=== PATIENT | male | born 1990 | race Caucasian/White ===

== ENCOUNTER 2018-05-11 10:13 | Emergency (ER) | payer SELFPAY ==
--- NOTE | 2018-05-11 11:51 | UC ---
UC General HPI - HPI Summary HPI Summary: pain in chest with deep breating and cough x 2 weeks. + head congestion and sweaty plus occasional wheezing. seen [facility] ER last and dx bronchitis and pleurisy. tx prednisone and albuterol mdi. feeling worse. - History of Current Complaint Stated Complaint: CONGESTION COUGH Time Seen by Provider: 05/11/18 11:44 Hx Obtained From: Patient Onset/Duration: Gradual Onset Timing: Constant Aggravating: deep breath, cough, movement and lying back Alleviating: MDI sometimes helps breathing. Associated Signs & Symptoms: Positive: Cough, Chest Pain, Fever - ?, SOB, Wheezing - Allergy/Home Medications Allergies/Adverse Reactions: Allergies Allergy/AdvReac Type Severity Reaction Status Date / Time No Known Allergies Allergy Verified 03/28/16 21:07 PMH/Surg Hx/FS Hx/Imm Hx Previously Healthy: Yes - Surgical History Surgical History: Yes Surgery Procedure, Year, and Place: Tonsils. Adenoids - Family History Known Family History: Positive: Diabetes, Other - no fmh cerumen impaction - Social History Occupation: Employed Full-time Lives: With Family Alcohol Use: Occasionally Substance Use Type: None Smoking Status (MU): Current Every Day Smoker Type: Cigarettes Amount Used/How Often: 5-7 cigs per day Length of Time of Smoking/Using Tobacco: 10 YRS Have You Smoked in the Last Year: Yes When Did the Patient Quit Smoking/Using Tobacco: trying to quit - Immunization History Hx Tetanus, Diphtheria Vaccination: No Vaccination Up to Date: Yes Review of Systems Constitutional: Fever - ? Skin: Negative Eyes: Negative ENT: Negative Respiratory: Shortness Of Breath, Cough Cardiovascular: Negative Gastrointestinal: Negative Genitourinary: Negative Motor: Negative Neurovascular: Negative Musculoskeletal: Negative Neurological: Negative Psychological: Negative Is Patient Immunocompromised?: No All Other Systems Reviewed And Are Negative: Yes Physical Exam Triage Information Reviewed: Yes Appearance: Well-Appearing Vital Signs Reviewed: Yes Eyes: Positive: Conjunctiva Clear ENT: Positive: Pharynx normal, TMs normal. Negative: Nasal congestion, Nasal drainage Neck: Positive: Supple, Nontender, No Lymphadenopathy Respiratory: Positive: No respiratory distress, Decreased breath sounds, Other: - Central anterior cp with the deep breaths and movement on exam. Cardiovascular: Positive: RRR, No Murmur, Pulses Normal Abdomen Description: Positive: Nontender, No Organomegaly, Soft Bowel Sounds: Positive: Present Musculoskeletal: Positive: ROM Intact, No Edema Neurological: Positive: Alert Psychological: Positive: Age Appropriate Behavior Skin Exam: Normal - Additional Comments BP 114/79, HR=70, RR=20, temp 99.2, sat ra 99% Diagnostics - Radiology No standard instances Radiology Interpretation Completed By: Radiologist - IMPRESSION: SMALL LEFT UPPER LOBE INFILTRATE SUSPICIOUS FOR PNEUMONIA. - EKG Cardiac Rate: NL Cardiac Rhythm: Sinus: Normal Ectopy: None ST Segment: Normal Course/Dx - Course Course Of Treatment: non toxic, not hypoxic. L heart border infiltrate thus will tx for pneumonia. out pt tx appropriate - Differential Dx - Multi-Symptom Provider Diagnoses: Pneumonia Discharge - Sign-Out/Discharge Documenting (check all that apply): Patient Departure All imaging exams completed and their final reports reviewed: Yes - Discharge Plan Condition: Stable Disposition: HOME Prescriptions: DOXYcycline CAP(*) [DOXYcycline 100MG CAP(*)] 100 mg PO BID 10 Days #20 cap Patient Education Materials: Pneumonia (ED) Referrals: [facility] [Outside] - 3 Days Additional Instructions: INCREASE THE INHALER TO 2 PUFFS EVERY 6 HOURS - Billing Disposition and Condition Condition: STABLE Disposition: Home
[2018-05-11] MEDS ORDERED: Albuterol 2.5 MG/3 ML NEB.SOL* (0.083%) INH ONE (11:54)
--- NOTE | 2018-05-11 12:35 | RAD ---
INDICATION: Cough. COMPARISON: There are no relevant prior studies available for comparison. TECHNIQUE: Dual-energy PA and lateral views of the chest were obtained. FINDINGS: The heart is within normal limits in size. Mediastinal and hilar contours appear within normal limits. There is a small patchy infiltrate present adjacent to the left heart border likely located within the left upper lobe suspicious for pneumonia. The lungs are otherwise clear. No pleural effusion is seen. IMPRESSION: SMALL LEFT UPPER LOBE INFILTRATE SUSPICIOUS FOR PNEUMONIA.
== END 2018-05-11 13:10 | disposition home or self-care (01) ==
LOC: UCCORT 10:13
DX: J18.9 Pneumonia, unspecified organism (principal); F17.210 Nicotine dependence, cigarettes, uncomplicated
CPT/HCPCS: 71046; 93005; 99212; G0463

== ENCOUNTER 2018-06-01 16:36 | Emergency (ER) | payer SELFPAY ==
--- OUTSIDE RECORDS SUMMARY | 2018-06-01 17:05 | XMS REPORT ---
:1990 External Reference #:[id number] Demographics Address [address] [place] [address] Mobile Phone [phone] Preferred Language Danish Marital Status Not Or Latter-Day Affiliation Unknown Race White Ethnic Group Not Or Author Organization [facility] Address [address] [place] [address] Phone [phone] Care Team Providers Name Role Phone Aly Villatoro MD Care Team Information Workday Manager Unavailable Problems Date Description Provider Status Onset: 05/14/2018 Pneumonia Aly Villatoro MD Active Onset: 05/14/2018 Anxiety state Aly Villatoro MD Active Onset: 05/14/2018 Feeling irritable Aly Villatoro MD Active Social History Type Date Description Comments Smoking Patient is a former smoker quit 05/09/18 Allergies, Adverse Reactions, Alerts Date Description Reaction Status Severity Comments 05/14/2018 NKDA active Medications Medication Date Status Form Strength Qnty SIG Indications Ordering Provider Prozac Active Capsules 20mg 30caps Take 1 R45.4 Luciano Giron pill daily Doxycycline Active Capsules 100mg one Unknown Hyclate 000 tablet twice daily for 10 days. Ventolin HFA Active Aerosol 108(90Base) 2 puffs Unknown 000 mcg/Act by mouth four times a day as needed Aspirin Active Tablets 325mg take 1 Unknown 000 by mouth prn Vital Signs Date Vital Result Comment 05/14/2018 Weight 153.00 lb Heart Rate 52 /min BP Systolic Sitting 134 mmHg BP Diastolic Sitting 80 mmHg BP Systolic Standing 144 mmHg BP Diastolic Standing 85 mmHg Respiratory Rate 16 /min Body Temperature 98.8 F Pain Level 3 rib cage/ O2 % BldC Oximetry 99 % Results Description No Information Procedures Description No Information Plan of Care Future Appointment(s):06/19/2018 9:30 am - Aly Villatoro MD at [facility]05/14/2018 - Aly Bayd, MDR45.4 Irritability and angerNew Medication:Prozac 20 mgFollow up:4 weeks.F41.9 Anxiety disorder, unspecifiedComments:Prozac as above.J18.9 Pneumonia, unspecified organismComments:Continue the doxycycline.
--- OUTSIDE RECORDS SUMMARY | 2018-06-01 17:05 | XMS REPORT ---
:1990 External Reference #:[id number] Demographics Address [address] [place] [address] Mobile Phone [phone] Preferred Language Danish Marital Status Not Or Mandaeism Affiliation Unknown Race White Ethnic Group Not Or Author Organization [facility] [employer] Address [address] [place] [address] Phone [phone] Care Team Providers Name Role Phone Aly Villatoro MD Care Team Information Glove Stitcher Unavailable Problems Date Description Provider Status Onset: [...] 9:30 am - Aly [facility]o MD at [facility]05/14/2018 - Aly Bayd, MDR45.4 Irritability and angerNew Medication:Prozac 20 mgFollow up:4 weeks.F41.9 Anxiety disorder, unspecifiedComments:Prozac as above.J18.9 Pneumonia, unspecified organismComments:Continue the doxycycline.
[2018-06-01 17:42] VITALS: BP 157/84
--- NOTE | 2018-06-01 18:33 | UC ---
Ear Complaint HPI - HPI Summary HPI Summary: Per metal polisher: "LEFT EAR BLEEDING, SINCE THIS MORNING, DENIES ANY TRAUMA. " -here w/ his GF Lupe. -reports h/o significant cerumen impaction. has required ear flushes freq in past but none recently. felt pain in ear last night and again this morning. he placed cerumen softening gtts in ear this morning and then he tried suctioning out cerumen out of his left ear. he noted blood at that time. states he used q tip only on outer canal. denies trauma -he was treated for pneumonia with doxy. sx have resolved since completeing doxy ~ 10 d ago. -denies h/o PE tubes + ST and phlegm/PND. no sinus pain. no gland swelling. - History of Current Complaint Chief Complaint: UCEar Stated Complaint: L EAR PAIN/BLEEDING Time Seen by Provider: 06/01/18 18:08 Pain Intensity: 7 - Allergies/Home Medications Allergies/Adverse Reactions: Allergies Allergy/AdvReac Type Severity Reaction Status Date / Time No Known Allergies Allergy Verified 06/01/18 17:42 Home Medications: Home Medications Albuterol HFA INHALER* [Ventolin HFA Inhaler*] 2 puff INH Q6H PRN 06/01/18 [ History Confirmed 06/01/18] FLUoxetine* [Prozac*] 20 mg PO DAILY 06/01/18 [History Confirmed 06/01/18] PMH/Surg Hx/FS Hx/Imm Hx Previously Healthy: Yes Psychological History: Anxiety - Surgical History Surgical History: Yes Surgery Procedure, Year, and Place: Tonsils. Adenoids - Family History Known Family History: Positive: Diabetes, Other - no fmh cerumen impaction - Social History Alcohol Use: Occasionally Substance Use Type: None Smoking Status (MU): Former Smoker Type: Cigarettes Amount Used/How Often: 5-7 cigs per day Length of Time of Smoking/Using Tobacco: 10 YRS Have You Smoked in the Last Year: Yes When Did the Patient Quit Smoking/Using Tobacco: trying to quit - Immunization History Hx Tetanus, Diphtheria Vaccination: No Vaccination Up to Date: Yes Review of Systems Constitutional: Negative Skin: Negative Eyes: Other - left ear pain & blood. ENT: Negative Respiratory: Negative Cardiovascular: Negative Gastrointestinal: Negative Genitourinary: Negative Motor: Negative Neurovascular: Negative Musculoskeletal: Negative Neurological: Negative Psychological: Negative Is Patient Immunocompromised?: No All Other Systems Reviewed And Are Negative: Yes Physical Exam Triage Information Reviewed: Yes Appearance: Well-Appearing, No Pain Distress, Well-Nourished Vital Signs: Initial Vital Signs Temp 98 F 06/01/18 17:38 Pulse 63 06/01/18 17:38 Resp 16 06/01/18 17:38 BP 157/84 06/01/18 17:38 Pulse Ox 99 06/01/18 17:38 Vital Signs Reviewed: Yes Eye Exam: Normal ENT: Positive: Pharyngeal erythema - mild erythema but significant PND. no exudate. no abscess, Other - Rt TM w/ serous fluid and scar c.w prev PE tube ( but denies h/o PE tubes). left outer ear is nml but evident of bright red blood at outer orifice of canal. TM appears normal. I do not see any evidence of perforation, redness, retraction or bulging. unable to visulaize the very inferior portion. canal does not show significant cerumen. there is some bloody inferior debris inferior distal canal. mild tenderness w/ exam only Dental Exam: Normal Neck exam: Normal Neck: Positive: Supple, Nontender, No Lymphadenopathy Respiratory: Positive: Lungs clear, Normal breath sounds, No respiratory distress, No accessory muscle use. Negative: Crackles, Rhonchi, Stridor, Wheezing Cardiovascular Exam: Normal Cardiovascular: Positive: RRR, No Murmur Abdomen Description: Positive: Nontender, Soft Musculoskeletal Exam: Normal Neurological Exam: Normal Psychological Exam: Normal Skin Exam: Normal Ear Complaint Course/Dx - Course Course Of Treatment: They have seen Dr Britton before and prefer to follow up with him. They understand that I am uncertain of cause of blood, but suspect trauma d/t bulb suctioning. will treat w/ abx in case there was an infection w/ small non-visible perf. Will not give gtts for that reason as well. recommend to leave the ear alone. do not suction. do not use cerumen gtts, no q tip. I am not inspecting any further and defer to specialist to avoid any trauma. They are happy with this and agreeable w/ plan. Of note, Lupe was visibly upset when I entered the room and became tearful. I asked if they would like me to step out of the room and she declined stating to just "take care of him". They were here for some time waiting and I apologized for the wait but there was an emergency ahead of them. Farhat explained that he has anxiety adn long wait times make him uncomfortable. he did not appear uncomfortable. - Differential Dx/Diagnosis Differential Diagnosis/HQI/PQRI: Cellulitis, Cerumen Impaction, Otitis Media, Perforated TM Provider Diagnoses: right ear pain Discharge - Sign-Out/Discharge Documenting (check all that apply): Patient Departure All imaging exams completed and their final reports reviewed: No Studies - Discharge Plan Condition: Stable Disposition: HOME Prescriptions: Amoxicillin/Clavulanate TAB* [Augmentin TAB 875*] 875 mg PO BID #20 tab Patient Education Materials: Earache (ED) Referrals: No Primary Care Phys,NOPCP [Primary Care Provider] - Goyo Britton MD [Medical Doctor] - Additional Instructions: Make sure to take a probiotic daily while on antibiotics to help prevent a potential complication of antibiotic use called c diff. Some well known brands that can be found OTC are florastor, align and [employer]. Make sure to complete the entire prescription unless advised otherwise by your health care provider. - Billing Disposition and Condition Condition: STABLE Disposition: Home
== END 2018-06-01 18:53 | disposition home or self-care (01) ==
LOC: UCCORT 16:36
DX: H92.01 Otalgia, right ear (principal); F41.9 Anxiety disorder, unspecified; Z87.891 Personal history of nicotine dependence
CPT/HCPCS: 99212; G0463

== ENCOUNTER 2018-08-01 14:08 | Emergency (ER) | payer OTHER ==
--- OUTSIDE RECORDS SUMMARY | 2018-08-01 14:23 | XMS REPORT | Continuity of Care Document ---
:1990 External Reference #:[id number] Demographics Address [address] [place] [address] Mobile Phone [phone] Preferred Language en Marital Status Not or Jehovah'S Witness Affiliation Unknown Race White Ethnic Group Not or Author Name Diane Slade Care Team Providers Name Role Phone Aly Villatoro MD Care Team Information Clinical Genetics Laboratory Chief Unavailable Payers Type Date Identification Numbers Payment Provider Subscriber Policy Number: [id number] Alexandro Villeda PayID: [id number] [address] [place] [address] Advance Directives Description No Information Available Problems Date Description Provider Status Onset: 05/14/2018 Intermittent explosive disorder Aly Villatoro MD Active Onset: 05/14/2018 Pneumonia Aly Villatoro MD Active Onset: 05/14/2018 Anxiety state Aly Villatoro MD Active Onset: 05/14/2018 Feeling irritable Aly Villatoro MD Active Family History Date Family Member(s) Problem(s) Comments Mother Diabetes Siblings 2 biological, 9 step-siblings. Social History Type Date Description Comments Sex Unknown ETOH Use rarely drinks EtOH Tobacco Use Start: Unknown End: Patient is a former smoker quit 05/09/18 Unknown Recreational Drug Use Regularly uses Marijuana Smoking Status Reviewed: 07/31/18 Patient is a former smoker quit 05/09/18 Allergies, Adverse Reactions, Alerts Description No Known Drug Allergies Medications Medication Date Status Form Strength Qnty SIG Indications Ordering Provider Prozac Active Capsules 20mg 60caps take 2 R45.4 Luciano Giron pills daily Ventolin HFA Active Aerosol 108(90Base) 2 puffs Unknown 000 mcg/Act by mouth four times a day as needed Aspirin Active Tablets 325mg take 1 Unknown 000 by mouth prn Doxycycline Hx Capsules 100mg one Unknown Hyclate 000 - tablet twice 018 daily for 10 days. Immunizations Description No Information Available Vital Signs Date Vital Result Comment 07/31/2018 12:00pm Weight 163.00 lb Heart Rate 52 /min BP Systolic 118 mmHg Lue BP Diastolic 68 mmHg Lue Respiratory Rate 16 /min Body Temperature 98.6 F Pain Level 2 tooth L sided jaw O2 % BldC Oximetry 98 % 06/19/2018 10:08am Weight 163.00 lb Heart Rate 52 /min BP Systolic 118 mmHg BP Diastolic 78 mmHg Respiratory Rate 16 /min Pain Level 0 O2 % BldC Oximetry 98 % 05/14/2018 2:32pm Weight 153.00 lb Heart Rate 52 /min BP Systolic Sitting 134 mmHg BP Diastolic Sitting 80 mmHg BP Systolic Standing 144 mmHg BP Diastolic Standing 85 mmHg Respiratory Rate 16 /min Body Temperature 98.8 F Pain Level 3 rib cage/ O2 % BldC Oximetry 99 % Results Test Date Facility Test Result H/L Range Note Order 06/19/2018 [facility] Cognitive Therapy <pending> [address] [place] [address] [phone] Procedures Description No Information Available Encounters Type Date Location Provider Dx Diagnosis Office Visit 06/19/2018 [facility]ly Villatoro MD R45.4 Irritability and 9:30a [facility] anger F63.81 Intermittent explosive disorder F41.9 Anxiety disorder, unspecified Office Visit 05/14/2018 2:00p [facility] Aly Villatoro J18.9 Pneumonia , [facility] unspecified organism R45.4 Irritability and anger F63.81 Intermittent explosive disorder F41.9 Anxiety disorder, unspecified Plan of Treatment 07/31/2018 - Aly Villatoro MDR45.4 Irritability and angerComments:Take 20mg pills for 1 week and then stop. Follow-up with Psychiatry. We will refer you to [facility] for cognitive behavioral therapy/relaxation techniques.F63.81 Intermittent explosive esbwxtdpC23.9 Anxiety disorder, unspecified
[2018-08-01 14:40] VITALS: BP 144/96
[2018-08-01] MEDS ORDERED: Cyclobenzaprine TAB* 10 MG PO ONE (15:10)
[2018-08-01] MEDS ORDERED: Acetaminophen TAB* 325 MG PO ONE (15:10)
[2018-08-01] MEDS ORDERED: Ibuprofen TAB* 600 MG PO ONE (15:10)
--- NOTE | 2018-08-01 15:14 | ED ---
Back Pain - HPI Summary HPI Summary: pt presents for evaluation of his lower back pain. he works as a cook. he states he was getting into bed and started to have lower back pain. he denies any trauma. he has occasional lower back pain. he denies any saddle paresthesias or any bowel or bladder dysfunction. - History of Current Complaint Chief Complaint: UCBackPain Stated Complaint: LOWER BACK PAIN Hx Obtained From: Patient, Family/Online User Experience Strategist Onset/Duration: Gradual Onset Onset/Duration: Started Days Ago Timing: Constant Back Pain Location: Is Diffuse - lower lumbar area, does not radiate Severity Currently: Moderate Pain Intensity: 5 - Allergies/Home Medications Allergies/Adverse Reactions: Allergies Allergy/AdvReac Type Severity Reaction Status Date / Time No Known Allergies Allergy Verified 06/01/18 17:42 PMH/Surg Hx/FS Hx/Imm Hx Previously Healthy: Yes Respiratory History: Reports: Hx Asthma - Surgical History Surgery Procedure, Year, and Place: Tonsils. Adenoids Infectious Disease History: Yes Infectious Disease History: Reports: Hx of Known/Suspected MRSA Denies: Traveled Outside the [place] in Last 30 Days - Family History Known Family History: Positive: Diabetes, Other - no fmh cerumen impaction - Social History Alcohol Use: Occasionally Substance Use Type: Reports: Marijuana Substance Use Comment - Amount & Last Used: DAILY Smoking Status (MU): Light Every Day Tobacco Smoker Type: Cigars Amount Used/How Often: 5-7 cigs per day Length of Time of Smoking/Using Tobacco: 10 YRS Have You Smoked in the Last Year: Yes Review of Systems Constitutional: Negative Eyes: Negative ENT: Negative Cardiovascular: Negative Respiratory: Negative Gastrointestinal: Negative Genitourinary: Negative Positive: Myalgia - lumbar area Skin: Negative Neurological: Negative Psychological: Normal All Other Systems Reviewed And Are Negative: No Physical Exam Triage Information Reviewed: Yes Vital Signs On Initial Exam: Initial Vitals Temp Pulse Resp BP Pulse Ox 98.5 F 75 17 144/96 98 08/01/18 14:34 08/01/18 14:34 08/01/18 14:34 08/01/18 14:34 08/01/18 14:34 Vital Signs Reviewed: Yes Appearance: Positive: Well-Nourished, Pain Distress - mild Skin: Positive: Warm, Dry Head/Face: Positive: Normal Head/Face Inspection Eyes: Positive: Normal, EOMI ENT: Positive: Hearing grossly normal, Pharynx normal Neck: Positive: Supple, Nontender Cardiovascular: Positive: Normal, RRR Abdomen Description: Positive: Nontender, Soft Bowel Sounds: Positive: Present Musculoskeletal: Positive: Normal, Strength/ROM Intact, Other - pt is tender to palpation to mid-lumbar spine, no rash, no step offs Neurological: Positive: Normal, Sensory/Motor Intact, CN Intact II-III Psychiatric: Positive: Normal AVPU Assessment: Alert Diagnostics - Vital Signs Vital Signs Temp Pulse Resp BP Pulse Ox 08/01/18 14:34 98.5 F 75 17 144/96 98 - Laboratory Lab Statement: Any lab studies that have been ordered have been reviewed, and results considered in the medical decision making process. Back Pain Course/Dx - Course Course Of Treatment: xrays negative. pt received tylenol, motrin, and flexeril. he does not have to return to work until monday. he is not requesting a work excuse. rx for flexeril sent to the pharmacy. - Diagnoses Provider Diagnoses: Low back strain Discharge - Sign-Out/Discharge Documenting (check all that apply): Patient Departure All imaging exams completed and their final reports reviewed: Yes - Discharge Plan Condition: Stable Disposition: HOME Prescriptions: Cyclobenzaprine TAB* [Flexeril 10 MG TAB*] 10 mg PO TID PRN #30 tab PRN Reason: Pain - Moderate Patient Education Materials: Muscle Strain (ED) Referrals: No Primary Care Phys,NOPCP [Primary Care Provider] - Additional Instructions: please follow up with your primary care physician. return if worse or any new symptoms. use heating pads to help with your back pain. careful not to keep it on longer than 20 minutes. I do not want you to burn your back. take the tylenol, motrin, and flexeril as instructed. avoid any heavy lifting. - Billing Disposition and Condition Condition: STABLE Disposition: Home
== END 2018-08-01 16:07 | disposition home or self-care (01) ==
LOC: UCCORT 14:08
DX: F17.210 Nicotine dependence, cigarettes, uncomplicated (principal); S33.5XXA Sprain of ligaments of lumbar spine, initial encounter; X58.XXXA Exposure to other specified factors, initial encounter; Y93.89 Activity, other specified; Y92.003 Bedroom of unspecified non-institutional (private) residence as the place of occurrence of the external cause
CPT/HCPCS: 72100; 99212; A9270-GY; G0463